=== PATIENT | male | born 2000 | race Caucasian/White ===

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

== ENCOUNTER 2019-01-03 13:17 | Emergency (ER) | payer SELFPAY ==
[~2019-01-03] VITALS: Ht 167.6 cm; Wt 84.8 kg
[2019-01-03 13:36] VITALS: BP 116/73; Ht 167.6 cm; Wt 84.8 kg
== END 2019-01-03 14:38 | disposition home or self-care (01) ==
LOC: ED 13:17
DX: Q72.7 Split foot (principal)

== ENCOUNTER 2019-05-18 19:05 | Emergency (ER) | payer SELFPAY ==
[~2019-05-18] VITALS: Ht 167.6 cm; Wt 87.1 kg
[2019-05-18 19:21] VITALS: Ht 167.6 cm; Wt 87.1 kg
[2019-05-18 23:23] VITALS: BP 122/81
== END 2019-05-18 23:23 | disposition home or self-care (01) ==
LOC: ED 19:05
DX: J10.1 Influenza due to other identified influenza virus with other respiratory manifestations (principal)
CPT/HCPCS: 87804